=== PATIENT | female | born 1960 | race Caucasian/White ===

== ENCOUNTER 2016-11-15 19:39 | Emergency (ER) | payer OTHER ==
[2016-11-15] MEDS ORDERED: OPTIRAY 350 100 ML VIAL HMH IV ONE (19:40)
[2016-11-15] MEDS ORDERED: DILAUDID 1 MG/ML AMP ONE (21:25)
[2016-11-15] MEDS ORDERED: ONDANSETRON 4 MG VIAL ONE (21:25)
[2016-11-15] MEDS ORDERED: ALU/MAG/SIM 30 ML UDC ONE (21:54)
[2016-11-15] MEDS ORDERED: LIDOCAINE 2% VISC 15 ML UDC ONE (21:54)
[2016-11-15] MEDS ORDERED: FAMOTIDINE 20 MG INJ ONE (21:54)
== END 2016-11-15 22:54 | disposition home or self-care (01) ==
LOC: ER 19:39
DX: K21.0 Gastro-esophageal reflux disease with esophagitis (principal); K29.00 Acute gastritis without bleeding; K27.7 Chronic peptic ulcer, site unspecified, without hemorrhage or perforation; B96.81 Helicobacter pylori [H. pylori] as the cause of diseases classified elsewhere
CPT/HCPCS: 36415; 74177; 80053; 81003; 82553; 83690; 84484; 84703; 85025; 86677; 93005; 96374; 96375; 99285; J1170; J2405; Q9967

== ENCOUNTER 2016-11-20 11:23 | Inpatient (IN) | payer OTHER ==
[2016-11-18 16:39] VITALS: Ht 152.4 cm; Wt 79.8 kg
[2016-11-18 16:47] VITALS: BP_SYST 136; RESP 14; TEMP 98.4
[2016-11-20] VITALS (19 sets, daily range): BP systolic 98–155; RESP 12–20; TEMP 97.2–98.9
[~2016-11-20] VITALS: Ht 152.4 cm; Wt 79.8 kg
[~2016-11-20 11:23] MED LIST: BUPIVACA/EPI 0.25% PF 30ML NERVEBLOCK ONE; DEXAMETHASONE 4 MG/ML VIAL ONE; DILAUDID 1 MG/ML AMP ONE; FENTANYL 100 MCG/2 ML AMP ONE; GLYCOPYRROLATE 0.2 MG/ML VIAL ONE; LIDOCAINE 2% SYR 5 ML IV ONE; NEOSTIGMINE 10 MG/10 ML VIAL ONE; ONDANSETRON 4 MG VIAL ONE; PROPOFOL 20 ML VIAL IV ONE; ROCURONIUM 50 MG VIAL IV ONE
[2016-11-20] MEDS ORDERED: LACT RINGERS 1,000 ML IV SCH (11:50)
[2016-11-20] MEDS ORDERED: MIDAZOLAM 2 MG/2 ML INJ IV ONE (11:50)
[2016-11-20] MEDS ORDERED: LIDOCAINE 1% BUFFERED 1 ML SYR INTRADERM PRN (11:50)
[2016-11-20] MEDS ORDERED: INDOCYANINE GREEN 25 MG VIAL IV ONE (11:50)
[2016-11-20] MEDS ORDERED: GLYCOPYRROLATE 0.2 MG/ML VIAL IV ONE (11:50)
[2016-11-20] MEDS ORDERED: MORPHINE 2 MG/ML SYR IV PRN (15:10)
[2016-11-20] MEDS ORDERED: MORPHINE 4 MG/ML SYR IV PRN (15:10)
[2016-11-20] MEDS ORDERED: MEPERIDINE 25 MG/ML IV PRN (15:10)
[2016-11-20] MEDS ORDERED: OXYCODONE 5 MG TAB PO PRN ×2 (15:10→16:45)
[2016-11-20] MEDS ORDERED: ONDANSETRON 4 MG VIAL IV PRN ×2 (15:10→16:45)
[2016-11-20] MEDS ORDERED: SALINE FLUSH 10 ML FLUSH PRN (16:45)
[2016-11-20] MEDS: AMITRIPTYLINE 50 MG TAB PO SCH (16:50)
[2016-11-20] MEDS: DILAUDID 1 MG/ML AMP IV PRN ×4 (16:53→21:40)
[2016-11-20] MEDS: CEFAZOLIN 2,000 MG in SODIUM CHLORIDE 0.9% 100 ML IV SCH (18:41)
[2016-11-20] MEDS: LEVOTHYROXINE 0.05 MG TAB PO SCH (18:43)
[2016-11-20] MEDS: SODIUM CHLORIDE 0.9% 1,000 ML IV SCH (18:53)
[2016-11-20] MEDS: SALINE FLUSH 10 ML FLUSH SCH (20:00)
[2016-11-20] MEDS: CETIRIZINE 10 MG TAB PO SCH (21:38)
[2016-11-20] MEDS: cloNIDine 0.2 MG TAB PO SCH (21:38)
[2016-11-20] MEDS ORDERED: MISSING DOSE XX ONE (22:05)
[2016-11-20] MEDS ORDERED: DIPHENHYDRAMINE 25 MG CAP PO PRN (22:20)
[2016-11-20] MEDS: Atorvastatin 20 MG TAB PO SCH (22:33)
[2016-11-21] VITALS (10 sets, daily range): BP systolic 99–125; RESP 16–18; TEMP 97.6–98.6
[2016-11-21] MEDS: CEFAZOLIN 2,000 MG in SODIUM CHLORIDE 0.9% 100 ML IV SCH ×2 (00:42→08:54)
[2016-11-21] MEDS: DILAUDID 1 MG/ML AMP IV PRN ×5 (03:57→23:59)
[2016-11-21] MEDS: SODIUM CHLORIDE 0.9% FLUSH BAG 500 ML IV SCH (05:16)
[2016-11-21] MEDS: LEVOTHYROXINE 0.05 MG TAB PO SCH (06:28)
[2016-11-21] MEDS ORDERED: MISSING DOSE XX ONE ×3 (06:30→18:45)
[2016-11-21] MEDS: AMITRIPTYLINE 50 MG TAB PO SCH (08:55)
[2016-11-21] MEDS: SALINE FLUSH 10 ML FLUSH SCH ×2 (08:56→20:49)
[2016-11-21] MEDS: SODIUM CHLORIDE 0.9% 1,000 ML IV SCH (16:17)
[2016-11-21] MEDS: CETIRIZINE 10 MG TAB PO SCH (20:49)
[2016-11-21] MEDS: cloNIDine 0.2 MG TAB PO SCH (20:49)
[2016-11-21] MEDS: Atorvastatin 20 MG TAB PO SCH (20:49)
[2016-11-22] MEDS: DILAUDID 1 MG/ML AMP IV PRN ×2 (03:14→07:30)
[2016-11-22 03:39] VITALS: BP_SYST 112; TEMP 97.8
[2016-11-22 03:40] VITALS: RESP 16
[2016-11-22] MEDS ORDERED: MISSING DOSE XX ONE (04:00)
[2016-11-22] MEDS: SODIUM CHLORIDE 0.9% FLUSH BAG 500 ML IV SCH (05:07)
[2016-11-22] MEDS: LEVOTHYROXINE 0.05 MG TAB PO SCH (06:03)
[2016-11-22 07:29] VITALS: BP_SYST 134; RESP 16; TEMP 98
[2016-11-22] MEDS: SALINE FLUSH 10 ML FLUSH SCH (07:29)
[2016-11-22] MEDS: AMITRIPTYLINE 50 MG TAB PO SCH (07:29)
[2016-11-22 11:30] VITALS: BP_SYST 119; RESP 16; TEMP 98
[2016-11-22 12:57] VITALS: BP_SYST 134; RESP 18; TEMP 98
== END 2016-11-22 14:41 | disposition home or self-care (01) | DRG 416 ==
LOC: ENRESERVDT → ENRESERVTM → OSEC 11:23 → ENPENDDIS 16:41 → SDS 16:41 → 5THE 18:41
PROVIDERS: ADMIT Surgery; ATTEND Surgery
PROC: 0FT40ZZ Resection of Gallbladder, Open Approach (ICD-10-PCS; principal; 2016-11-20 14:50)
PROC: 0FJ44ZZ Inspection of Gallbladder, Percutaneous Endoscopic Approach (ICD-10-PCS; 2016-11-20 14:50)
DX: K81.2 Acute cholecystitis with chronic cholecystitis (principal); K74.60 Unspecified cirrhosis of liver; Z53.31 Laparoscopic surgical procedure converted to open procedure; E11.9 Type 2 diabetes mellitus without complications; G89.4 Chronic pain syndrome; K21.9 Gastro-esophageal reflux disease without esophagitis; E03.9 Hypothyroidism, unspecified
CPT/HCPCS: 80048; 80053; 82947; 85014; 85018; 85025; 85610; 85730; 86850; 86900; 86901; 88304; 94799